=== PATIENT | male | born 1945 | race Caucasian/White ===

== ENCOUNTER 2024-08-02 14:21 | Inpatient (IN) | payer MEDICARE, OTHER ==
[~2024-08-02] VITALS: Ht 188 cm; Wt 77.7 kg
[~2024-08-02 14:21] MED LIST: JANUMET 50-1,01 EACH PO
[2024-08-02 14:22] VITALS: TEMP 98.2
[2024-08-02] MEDS: DILTIAZEM HCL 5 MG/ML 5 ML VIAL IV STA ×2 (14:34→15:55)
[2024-08-02] MEDS: DIGOXIN INJ 0.25 MG/ML 2 ML AMP IV STA (14:36)
[2024-08-02] MEDS: METOPROLOL TARTRATE INJ 1 MG/ML VIAL IV STA (14:38)
[2024-08-02 14:39] LABS: BASOPHILS % 0.2 % (0.0-1.0); HEMATOCRIT 32.7 % (38.2-49.6); HEMOGLOBIN 10.5 g/dL (14.0-18.0); LYMPHOCYTES % 4.6 % (18.0-39.1); MEAN CORPUSCULAR HEMOGLOBIN 28.7 pg (28-32); MEAN CORPUSCULAR HGB CONC 32.1 g/dL (31-35); MEAN CORPUSCULAR VOLUME 89.3 fL (81-99); MONOCYTES # (AUTO) 1.3 (0.2-0.8); NEUTROPHILS # (AUTO) 18.8 (2.1-6.9); NEUTROPHILS % 88.5 % (38.7-80.0); PLATELET COUNT 422 x10e3/uL (140-360); RED BLOOD COUNT 3.66 x10e6/uL (4.3-5.7); RED CELL DISTRIBUTION WIDTH 14.7 % (11.7-14.4); WHITE BLOOD COUNT 21.26 x10e3/uL (4.8-10.8)
[2024-08-02] MEDS ORDERED: DIGOXIN INJ 0.25 MG/ML 2 ML AMP ONE (14:46)
[2024-08-02 14:57] LABS: ALBUMIN/GLOBULIN RATIO 0.8 (0.8-2.0); ANION GAP 17.2 mmol/L (8-16); BILIRUBIN,TOTAL 0.5 mg/dL (0.2-1.2); CALCIUM 8.9 mg/dL (8.4-10.2); CREATININE, SERUM 1.3 mg/dL (0.72-1.25); POTASSIUM 4.2 mmol/L (3.5-5.1); TOTAL PROTEIN 6.7 g/dL (6.5-8.1)
[2024-08-02 15:05] LABS: TROPONIN I 0.005 ng/mL (0-0.300)
[2024-08-02] MEDS: SODIUM CHLORIDE 0.9% 1000ML 1,000 ML IV STA (16:07)
[2024-08-02] MEDS: ACETAMINOPHEN 325 MG TAB PO STA (16:09)
[2024-08-02 16:44] LABS: BILIRUBIN,URINE NEGATIVE (NEGATIVE); CLARITY,URINE SL CLOUDY (CLEAR); COLOR,URINE YELLOW (YELLOW); GLUCOSE, URINE NEGATIVE (NEGATIVE); KETONES,URINE 1+ (NEGATIVE); LEUKOCYTE ESTERASE ,URINE SMALL (NEGATIVE); NITRITE,URINE POSITIVE (NEGATIVE); PH,URINE 6 (5 - 7); PROTEIN,URINE DIPSTICK 1+ (NEGATIVE); URINE UROBILINOGEN 0.2 mg/dL (0.2 - 1)
[2024-08-02 17:04] LABS: BACTERIA,URINE MODERATE /HPF; RBC,URINE 0-5 /HPF (0-5)
[2024-08-02] MEDS ORDERED: ONDANSETRON HCL INJ 2MG/ML 2ML 2 MG/ML VIAL IV PRN (17:15)
[2024-08-02] MEDS ORDERED: SODIUM CHLORIDE FLUSH 10 ML SYR INJ PRN (17:15)
[2024-08-02 19:00] VITALS: PULSE 86; RESP 18
[2024-08-02] MEDS ORDERED: LISINOPRIL10 MG PO (20:32)
[2024-08-02] MEDS ORDERED: TAMOXIFEN CITRA10 MG PO (20:34)
[2024-08-02] MEDS ORDERED: ZOLPIDEM TARTRAT5 MG PO (20:34)
[2024-08-02] MEDS ORDERED: ATORVASTATIN CA10 MG PO (20:34)
[2024-08-02 21:03] VITALS: BP 129/82; PULSE 74; RESP 18; TEMP 98.6; O2SAT 98
[2024-08-02 22:17] VITALS: BP 129/82; PULSE 74; RESP 18; TEMP 98.6; O2SAT 98
[2024-08-02 22:51] VITALS: BP 129/82; PULSE 74; RESP 18; TEMP 98.6; O2SAT 98
[2024-08-03 00:50] VITALS: BP 139/73; PULSE 90; RESP 18; TEMP 98.9; O2SAT 98
[2024-08-03 04:00] VITALS: BP 132/78; PULSE 92; RESP 20; TEMP 97.8; O2SAT 100
[2024-08-03 06:15] LABS: BASOPHILS % 0.3 % (0.0-1.0); EOSINOPHILS % 0.2 % (0.0-6.0); HEMATOCRIT 30.7 % (38.2-49.6); HEMOGLOBIN 9.7 g/dL (14.0-18.0); LYMPHOCYTES # (AUTO) 0.9 (1.0-3.2); LYMPHOCYTES % 5.9 % (18.0-39.1); MEAN CORPUSCULAR HEMOGLOBIN 28.2 pg (28-32); MEAN CORPUSCULAR HGB CONC 31.6 g/dL (31-35); MEAN CORPUSCULAR VOLUME 89.2 fL (81-99); MONOCYTES % 6.6 % (4.4-11.3); NEUTROPHILS % 86.3 % (38.7-80.0); PLATELET COUNT 336 x10e3/uL (140-360); RED BLOOD COUNT 3.44 x10e6/uL (4.3-5.7); RED CELL DISTRIBUTION WIDTH 14.7 % (11.7-14.4); WHITE BLOOD COUNT 15.01 x10e3/uL (4.8-10.8)
[2024-08-03 06:42] LABS: ALBUMIN 2.6 g/dL (3.5-5.0); ALBUMIN/GLOBULIN RATIO 0.8 (0.8-2.0); ANION GAP 15.7 mmol/L (8-16); BILIRUBIN,TOTAL 0.5 mg/dL (0.2-1.2); CALCIUM 8.4 mg/dL (8.4-10.2); CREATININE, SERUM 0.86 mg/dL (0.72-1.25); POTASSIUM 3.7 mmol/L (3.5-5.1); TOTAL PROTEIN 5.9 g/dL (6.5-8.1)
[2024-08-03 07:06] LABS: TROPONIN I 0.017 ng/mL (0-0.300)
[2024-08-03 08:40] VITALS: BP 141/87; PULSE 94; RESP 18; TEMP 98.8; O2SAT 98
[2024-08-03 09:33] VITALS: BP 141/87; PULSE 94; RESP 18; TEMP 98.8; O2SAT 98
[2024-08-03] MEDS: MAGNESIUM SULFATE 2GM/50ML 50 ML IV ONE (09:36)
[2024-08-03] MEDS: TAMOXIFEN CITRATE 10 MG TAB PO SCH (09:38)
[2024-08-03 14:40] VITALS: BP 135/69; PULSE 53; RESP 18; TEMP 98.4; O2SAT 97
[2024-08-03 16:43] LABS: TROPONIN I 0.01 ng/mL (0-0.300)
[2024-08-03] MEDS: ENOXAPARIN INJ 80 MG/0.8 ML SYR SC ONE (17:33)
[2024-08-03] MEDS: METOPROLOL TARTRATE 25 MG TAB PO SCH (17:33)
[2024-08-03 18:43] VITALS: BP 144/95; PULSE 101; RESP 18; TEMP 98.2; O2SAT 98
[2024-08-03] MEDS: ZOLPIDEM TARTRATE 5 MG TAB PO PRN (21:10)
[2024-08-03] MEDS: Morphine 2mg Syringe 2 MG/ML SYR IV PRN (21:11)
[2024-08-03] MEDS: ATORVASTATIN 10 MG TAB PO SCH (21:24)
[2024-08-04] VITALS (8 sets, daily range): BP systolic 128–145; BP diastolic 69–91; PULSE 61–100; RESP 16–20; TEMP 97.3–98.2; O2SAT 95–100
[2024-08-04] MEDS: ENOXAPARIN INJ 80 MG/0.8 ML SYR SC SCH (06:07)
[2024-08-04 07:01] LABS: BASOPHILS % 0.3 % (0.0-1.0); EOSINOPHILS # (AUTO) 0.1 (0.0-0.4); HEMATOCRIT 29.6 % (38.2-49.6); HEMOGLOBIN 9.4 g/dL (14.0-18.0); LYMPHOCYTES # (AUTO) 0.9 (1.0-3.2); MEAN CORPUSCULAR HEMOGLOBIN 28.3 pg (28-32); MEAN CORPUSCULAR HGB CONC 31.8 g/dL (31-35); MEAN CORPUSCULAR VOLUME 89.2 fL (81-99); MONOCYTES # (AUTO) 0.6 (0.2-0.8); MONOCYTES % 5.8 % (4.4-11.3); NEUTROPHILS # (AUTO) 8.5 (2.1-6.9); NEUTROPHILS % 82.8 % (38.7-80.0); PLATELET COUNT 332 x10e3/uL (140-360); RED BLOOD COUNT 3.32 x10e6/uL (4.3-5.7); RED CELL DISTRIBUTION WIDTH 14.6 % (11.7-14.4); WHITE BLOOD COUNT 10.27 x10e3/uL (4.8-10.8)
[2024-08-04 07:29] LABS: ALBUMIN 2.5 g/dL (3.5-5.0); ALBUMIN/GLOBULIN RATIO 0.8 (0.8-2.0); ANION GAP 14.6 mmol/L (8-16); BILIRUBIN,TOTAL 0.4 mg/dL (0.2-1.2); CALCIUM 8.4 mg/dL (8.4-10.2); CREATININE, SERUM 0.8 mg/dL (0.72-1.25); MAGNESIUM 1.5 MG/DL (1.3-2.1); POTASSIUM 3.6 mmol/L (3.5-5.1); TOTAL PROTEIN 5.7 g/dL (6.5-8.1)
[2024-08-04] MEDS: METOPROLOL TARTRATE 25 MG TAB PO SCH (17:36)
[2024-08-05] VITALS (12 sets, daily range): BP systolic 112–159; BP diastolic 65–88; PULSE 77–99; RESP 16–19; TEMP 97.3–98.3; O2SAT 93–100
[2024-08-05] MEDS: MAGNESIUM SULFATE 2GM/50ML 50 ML IV ONE (05:01)
[2024-08-05 06:27] LABS: BASOPHILS % 0.4 % (0.0-1.0); EOSINOPHILS # (AUTO) 0.2 (0.0-0.4); EOSINOPHILS % 2.2 % (0.0-6.0); HEMATOCRIT 29.8 % (38.2-49.6); HEMOGLOBIN 9.4 g/dL (14.0-18.0); LYMPHOCYTES # (AUTO) 1.1 (1.0-3.2); LYMPHOCYTES % 13.5 % (18.0-39.1); MEAN CORPUSCULAR HEMOGLOBIN 28.1 pg (28-32); MEAN CORPUSCULAR HGB CONC 31.5 g/dL (31-35); MONOCYTES # (AUTO) 0.6 (0.2-0.8); MONOCYTES % 7.4 % (4.4-11.3); NEUTROPHILS # (AUTO) 6.2 (2.1-6.9); NEUTROPHILS % 75.5 % (38.7-80.0); PLATELET COUNT 335 x10e3/uL (140-360); RED BLOOD COUNT 3.35 x10e6/uL (4.3-5.7); RED CELL DISTRIBUTION WIDTH 14.5 % (11.7-14.4); WHITE BLOOD COUNT 8.14 x10e3/uL (4.8-10.8)
[2024-08-05 07:08] LABS: ALBUMIN 2.4 g/dL (3.5-5.0); ALBUMIN/GLOBULIN RATIO 0.7 (0.8-2.0); ANION GAP 13.7 mmol/L (8-16); BILIRUBIN,TOTAL 0.4 mg/dL (0.2-1.2); CALCIUM 8.6 mg/dL (8.4-10.2); CREATININE, SERUM 0.8 mg/dL (0.72-1.25); POTASSIUM 3.7 mmol/L (3.5-5.1); TOTAL PROTEIN 5.9 g/dL (6.5-8.1)
[2024-08-05] MEDS: DIGOXIN 0.25 MG TAB PO ONE (16:56)
[2024-08-05] MEDS: METOPROLOL TARTRATE 50 MG TAB PO SCH (18:22)
[2024-08-06 03:31] VITALS: BP 115/80; PULSE 72; RESP 18; TEMP 98.4; O2SAT 99
[2024-08-06 07:24] LABS: BASOPHILS % 0.3 % (0.0-1.0); EOSINOPHILS # (AUTO) 0.2 (0.0-0.4); EOSINOPHILS % 2.7 % (0.0-6.0); HEMATOCRIT 30.2 % (38.2-49.6); HEMOGLOBIN 10.1 g/dL (14.0-18.0); LYMPHOCYTES # (AUTO) 0.8 (1.0-3.2); LYMPHOCYTES % 10.9 % (18.0-39.1); MEAN CORPUSCULAR HEMOGLOBIN 28.4 pg (28-32); MEAN CORPUSCULAR HGB CONC 33.4 g/dL (31-35); MEAN CORPUSCULAR VOLUME 84.8 fL (81-99); MONOCYTES # (AUTO) 0.5 (0.2-0.8); MONOCYTES % 7.2 % (4.4-11.3); NEUTROPHILS # (AUTO) 5.8 (2.1-6.9); NEUTROPHILS % 77.8 % (38.7-80.0); PLATELET COUNT 373 x10e3/uL (140-360); RED BLOOD COUNT 3.56 x10e6/uL (4.3-5.7); RED CELL DISTRIBUTION WIDTH 14.3 % (11.7-14.4)
[2024-08-06 07:41] LABS: ALBUMIN 2.6 g/dL (3.5-5.0); ALBUMIN/GLOBULIN RATIO 0.7 (0.8-2.0); ANION GAP 11.1 mmol/L (8-16); BILIRUBIN,TOTAL 0.3 mg/dL (0.2-1.2); CALCIUM 8.9 mg/dL (8.4-10.2); CREATININE, SERUM 0.82 mg/dL (0.72-1.25); MAGNESIUM 1.5 MG/DL (1.3-2.1); POTASSIUM 4.1 mmol/L (3.5-5.1); TOTAL PROTEIN 6.1 g/dL (6.5-8.1)
[2024-08-06 08:31] VITALS: BP 159/82; PULSE 87; RESP 17; TEMP 98.2; O2SAT 99
[2024-08-06 09:55] VITALS: BP 159/82; PULSE 87; RESP 17; TEMP 98.2; O2SAT 99
[2024-08-06 13:07] VITALS: BP 125/67; PULSE 97; RESP 17; TEMP 98.6; O2SAT 98
[2024-08-06 16:00] VITALS: BP 140/81; PULSE 69; RESP 20; TEMP 98; O2SAT 94
[2024-08-06 21:00] VITALS: BP 155/85; PULSE 87; RESP 20; TEMP 97.6; O2SAT 100
[2024-08-07] VITALS (9 sets, daily range): BP systolic 117–153; BP diastolic 74–104; PULSE 65–101; RESP 16–20; TEMP 97.5–98.5; O2SAT 82–100
[2024-08-08] VITALS (9 sets, daily range): BP systolic 120–136; BP diastolic 60–81; PULSE 79–103; RESP 18; TEMP 97.6–98.4; O2SAT 97–100
[2024-08-08 06:35] LABS: ANION GAP 13.9 mmol/L (8-16); CALCIUM 8.7 mg/dL (8.4-10.2); CREATININE, SERUM 0.72 mg/dL (0.72-1.25); POTASSIUM 3.9 mmol/L (3.5-5.1)
[2024-08-08] MEDS: CIPROFLOXACIN 500 MG TAB PO SCH (17:55)
[2024-08-08] MEDS: ATORVASTATIN 10 MG TAB PO SCH (20:27)
[2024-08-09] VITALS (9 sets, daily range): BP systolic 105–152; BP diastolic 56–86; PULSE 76–93; RESP 16–18; TEMP 97.6–98.1; O2SAT 96–100
[2024-08-09 06:27] LABS: BASOPHILS % 0.4 % (0.0-1.0); EOSINOPHILS # (AUTO) 0.3 (0.0-0.4); HEMATOCRIT 30.2 % (38.2-49.6); HEMOGLOBIN 10.1 g/dL (14.0-18.0); LYMPHOCYTES # (AUTO) 1.2 (1.0-3.2); LYMPHOCYTES % 14.6 % (18.0-39.1); MEAN CORPUSCULAR HEMOGLOBIN 28.7 pg (28-32); MEAN CORPUSCULAR HGB CONC 33.4 g/dL (31-35); MEAN CORPUSCULAR VOLUME 85.8 fL (81-99); MONOCYTES # (AUTO) 0.7 (0.2-0.8); MONOCYTES % 8.7 % (4.4-11.3); NEUTROPHILS # (AUTO) 5.6 (2.1-6.9); NEUTROPHILS % 70.3 % (38.7-80.0); PLATELET COUNT 392 x10e3/uL (140-360); RED BLOOD COUNT 3.52 x10e6/uL (4.3-5.7); RED CELL DISTRIBUTION WIDTH 14.5 % (11.7-14.4); WHITE BLOOD COUNT 7.92 x10e3/uL (4.8-10.8)
[2024-08-09 06:58] LABS: CALCIUM 9.2 mg/dL (8.4-10.2); CREATININE, SERUM 0.84 mg/dL (0.72-1.25)
[2024-08-09] MEDS: ACETAMINOPHEN 325 MG TAB PO PRN (23:20)
[2024-08-10] VITALS (7 sets, daily range): BP systolic 99–147; BP diastolic 48–81; PULSE 79–93; RESP 16–20; TEMP 98–99.6; O2SAT 99–100
[2024-08-10] MEDS: DIGOXIN 0.125 MG TAB PO SCH (09:09)
[2024-08-10] MEDS: ZOLPIDEM TARTRATE 5 MG TAB PO PRN (22:21)
[2024-08-11] VITALS (8 sets, daily range): BP systolic 103–148; BP diastolic 50–92; PULSE 62–118; RESP 17–20; TEMP 97.3–98.1; O2SAT 94–100
[2024-08-11] MEDS: DIGOXIN 0.25 MG TAB PO SCH (09:30)
[2024-08-11] MEDS: BISACODYL 5 MG TAB EC PO PRN (17:04)
[2024-08-12] VITALS (8 sets, daily range): BP systolic 112–163; BP diastolic 70–96; PULSE 55–104; RESP 16–20; TEMP 97–98.1; O2SAT 99–100
[2024-08-12 06:46] LABS: BASOPHILS % 0.6 % (0.0-1.0); EOSINOPHILS # (AUTO) 0.3 (0.0-0.4); EOSINOPHILS % 4.3 % (0.0-6.0); HEMATOCRIT 32.7 % (38.2-49.6); HEMOGLOBIN 10.4 g/dL (14.0-18.0); LYMPHOCYTES % 13.7 % (18.0-39.1); MEAN CORPUSCULAR HEMOGLOBIN 28.3 pg (28-32); MEAN CORPUSCULAR HGB CONC 31.8 g/dL (31-35); MEAN CORPUSCULAR VOLUME 89.1 fL (81-99); MONOCYTES # (AUTO) 0.7 (0.2-0.8); MONOCYTES % 9.7 % (4.4-11.3); NEUTROPHILS # (AUTO) 5.1 (2.1-6.9); NEUTROPHILS % 70.3 % (38.7-80.0); PLATELET COUNT 425 x10e3/uL (140-360); RED BLOOD COUNT 3.67 x10e6/uL (4.3-5.7); RED CELL DISTRIBUTION WIDTH 14.7 % (11.7-14.4); WHITE BLOOD COUNT 7.24 x10e3/uL (4.8-10.8)
[2024-08-12 07:17] LABS: ALBUMIN/GLOBULIN RATIO 0.9 (0.8-2.0); BILIRUBIN,TOTAL 0.3 mg/dL (0.2-1.2); CALCIUM 9.2 mg/dL (8.4-10.2); CREATININE, SERUM 0.9 mg/dL (0.72-1.25); MAGNESIUM 1.9 MG/DL (1.3-2.1); TOTAL PROTEIN 6.5 g/dL (6.5-8.1)
[2024-08-13] VITALS (8 sets, daily range): BP systolic 119–148; BP diastolic 65–90; PULSE 62–94; RESP 18–22; TEMP 97.6–98.3; O2SAT 99–100
[2024-08-14] VITALS (9 sets, daily range): BP systolic 102–150; BP diastolic 54–90; PULSE 69–90; RESP 18–20; TEMP 97.6–98.1; O2SAT 98–100
[2024-08-15] VITALS (7 sets, daily range): BP systolic 104–143; BP diastolic 55–85; PULSE 67–89; RESP 16–21; TEMP 97.5–98.3; O2SAT 96–100
[2024-08-16] VITALS (8 sets, daily range): BP systolic 109–123; BP diastolic 63–88; PULSE 69–83; RESP 16–19; TEMP 97.3–98.1; O2SAT 99–100
[2024-08-16 07:18] LABS: BASOPHILS # (AUTO) 0.1 (0.0-0.1); BASOPHILS % 0.6 % (0.0-1.0); EOSINOPHILS # (AUTO) 0.4 (0.0-0.4); EOSINOPHILS % 4.5 % (0.0-6.0); HEMATOCRIT 33.3 % (38.2-49.6); HEMOGLOBIN 10.5 g/dL (14.0-18.0); LYMPHOCYTES # (AUTO) 1.2 (1.0-3.2); LYMPHOCYTES % 13.6 % (18.0-39.1); MEAN CORPUSCULAR HEMOGLOBIN 28.4 pg (28-32); MEAN CORPUSCULAR HGB CONC 31.5 g/dL (31-35); MONOCYTES # (AUTO) 0.8 (0.2-0.8); MONOCYTES % 9.3 % (4.4-11.3); NEUTROPHILS # (AUTO) 6.2 (2.1-6.9); NEUTROPHILS % 71.3 % (38.7-80.0); PLATELET COUNT 377 x10e3/uL (140-360); RED CELL DISTRIBUTION WIDTH 15.3 % (11.7-14.4); WHITE BLOOD COUNT 8.72 x10e3/uL (4.8-10.8)
[2024-08-16 08:06] LABS: ALBUMIN 3.2 g/dL (3.5-5.0); ANION GAP 13.4 mmol/L (8-16); BILIRUBIN,TOTAL 0.5 mg/dL (0.2-1.2); CALCIUM 8.9 mg/dL (8.4-10.2); CREATININE, SERUM 0.89 mg/dL (0.72-1.25); MAGNESIUM 1.8 MG/DL (1.3-2.1); POTASSIUM 4.4 mmol/L (3.5-5.1); TOTAL PROTEIN 6.3 g/dL (6.5-8.1)
[2024-08-17] VITALS (8 sets, daily range): BP systolic 108–136; BP diastolic 59–80; PULSE 59–87; RESP 17–19; TEMP 97.5–97.9; O2SAT 98–100
[2024-08-18 00:06] VITALS: BP 135/67; PULSE 81; RESP 17; TEMP 98; O2SAT 100
[2024-08-18 04:12] VITALS: BP 110/61; PULSE 90; RESP 18; TEMP 97.4; O2SAT 100
[2024-08-18 08:00] VITALS: BP 95/59; PULSE 79; RESP 17; TEMP 97.5; O2SAT 100
[2024-08-18 09:00] VITALS: BP 95/59; PULSE 79; RESP 17; TEMP 97.5; O2SAT 100
[2024-08-18 12:08] VITALS: BP 104/53; PULSE 73; RESP 18; TEMP 97.6; O2SAT 99
[2024-08-18 12:19] VITALS: BP 104/53; PULSE 73
== END 2024-08-18 14:50 | DRG 871 ==
LOC: ER 14:28 → ERHOLD 17:16 → MED/SURG3 20:26
PROVIDERS: ADMIT Internal Medicine; ATTEND Internal Medicine
PROC: 3E0333Z Introduction of Anti-inflammatory into Peripheral Vein, Percutaneous Approach (ICD-10-PCS; principal; 2024-08-02)
DX: A41.52 Sepsis due to Pseudomonas (principal); E43 Unspecified severe protein-calorie malnutrition; U07.1 COVID-19; N39.0 Urinary tract infection, site not specified; N12 Tubulo-interstitial nephritis, not specified as acute or chronic; R62.7 Adult failure to thrive; I48.91 Unspecified atrial fibrillation; E11.22 Type 2 diabetes mellitus with diabetic chronic kidney disease; I12.9 Hypertensive chronic kidney disease with stage 1 through stage 4 chronic kidney disease, or unspecified chronic kidney disease; N18.30 Chronic kidney disease, stage 3 unspecified; D63.1 Anemia in chronic kidney disease; R55 Syncope and collapse; E78.5 Hyperlipidemia, unspecified; R33.9 Retention of urine, unspecified; R63.4 Abnormal weight loss; Z68.22 Body mass index [BMI] 22.0-22.9, adult; M62.81 Muscle weakness (generalized); R53.81 Other malaise; Z79.84 Long term (current) use of oral hypoglycemic drugs; Z85.3 Personal history of malignant neoplasm of breast; Z82.49 Family history of ischemic heart disease and other diseases of the circulatory system
CPT/HCPCS: 36415; 51700; 71045; 80048; 80053; 81001; 82550; 83605; 83690; 83735; 83880; 84484; 85025; 87040; 87086; 87186; 87400; 93005; 93306; 93880; 99284; J0692; J1160; J1650; J2270; J2543; J3475; J7030; U0002

== ENCOUNTER 2024-09-25 10:28 | Emergency (ER) | payer MEDICARE ==
[~2024-09-25] VITALS: Ht 188 cm; Wt 77.6 kg
[~2024-09-25 10:28] MED LIST changes: +AMIODARONE HCL200 MG PO; +ATORVASTATIN CA10 MG PO; +ELIQUIS2.5 MG PO; +LISINOPRIL10 MG PO; +METOPROLOL TART25 MG PO; +TAMOXIFEN CITRA10 MG PO; +ZOLPIDEM TARTRAT5 MG PO
[2024-09-25 11:15] VITALS: PULSE 78; RESP 17; TEMP 98.6
[2024-09-25] MEDS ORDERED: NYSTATIN15 GM TOP (13:15)
[2024-09-25] MEDS ORDERED: CEPHALEXIN500 MG PO (13:15)
[2024-09-25 13:46] VITALS: BP 152/98; PULSE 68; RESP 17; TEMP 98.2; O2SAT 98
== END 2024-09-25 13:50 | disposition home or self-care (01) ==
LOC: ER 10:36
DX: N48.1 Balanitis (principal); I10 Essential (primary) hypertension; I48.91 Unspecified atrial fibrillation; Z79.01 Long term (current) use of anticoagulants
CPT/HCPCS: 76870; 93971; 93976; 99284

== ENCOUNTER 2024-10-18 14:54 | Outpatient (RCR) | payer MEDICARE ==
[~2024-10-18 14:54] MED LIST changes: +CEPHALEXIN500 MG PO; +NYSTATIN15 GM TOP
[2024-10-23] MEDS ORDERED: [UNRECOGNIZED DRUG - OTHER] PO (12:12)
[2024-10-23] MEDS ORDERED: TAMOXIFEN CITRA20 MG PO (12:18)
[2024-10-23] MEDS ORDERED: ATORVASTATIN CA40 MG PO (12:19)
[2024-10-23] MEDS ORDERED: LISINOPRIL2.5 MG PO (12:24)
[2024-10-23] MEDS ORDERED: ELIQUIS5 MG PO (12:27)
[2024-10-23] MEDS ORDERED: FLOMAX0.4 MG PO (12:36)
== END 2024-10-22 ==
LOC: PT 14:54
PROVIDERS: ATTEND Internal Medicine
DX: M62.81 Muscle weakness (generalized) (principal)

== ENCOUNTER 2024-10-22 10:10 | Inpatient (IN) | payer MEDICARE ==
[~2024-10-22] VITALS: Ht 188 cm; Wt 77.6 kg
[2024-10-22] VITALS (8 sets, daily range): BP systolic 135–151; BP diastolic 73–81; PULSE 70–79; RESP 14–18; TEMP 97.5–97.9; O2SAT 93–100
[2024-10-22 11:11] LABS: BASOPHILS % 0.1 % (0.0-1.0); EOSINOPHILS % 0.3 % (0.0-6.0); HEMATOCRIT 33.8 % (38.2-49.6); HEMOGLOBIN 11.5 g/dL (14.0-18.0); LYMPHOCYTES # (AUTO) 0.9 (1.0-3.2); MEAN CORPUSCULAR HEMOGLOBIN 26.3 pg (28-32); MEAN CORPUSCULAR VOLUME 77.2 fL (81-99); MONOCYTES # (AUTO) 0.7 (0.2-0.8); MONOCYTES % 6.3 % (4.4-11.3); NEUTROPHILS # (AUTO) 9.8 (2.1-6.9); NEUTROPHILS % 84.8 % (38.7-80.0); PLATELET COUNT 373 x10e3/uL (140-360); RED BLOOD COUNT 4.38 x10e6/uL (4.3-5.7); WHITE BLOOD COUNT 11.59 x10e3/uL (4.8-10.8)
[2024-10-22 11:27] LABS: INR 1.25; PROTHROMBIN TIME 16.4 seconds (11.9-14.5)
[2024-10-22 11:35] LABS: ALBUMIN 3.8 g/dL (3.5-5.0); ALBUMIN/GLOBULIN RATIO 1.2 (0.8-2.0); CALCIUM 9.2 mg/dL (8.4-10.2); CREATININE, SERUM 1.04 mg/dL (0.72-1.25); MAGNESIUM 1.3 MG/DL (1.3-2.1); TOTAL PROTEIN 7.1 g/dL (6.5-8.1)
[2024-10-22 11:41] LABS: TROPONIN I 0.007 ng/mL (0-0.300)
[2024-10-22 12:17] LABS: BLOOD UREA NITROGEN 16 mg/dL (7-26); GLUCOSE 110 mg/dL (74-118); OSMOLALITY,SERUM 242 mOsm/kg (278-305)
[2024-10-22 12:18] LABS: SODIUM 119 mmol/L (136-145)
[2024-10-22] MEDS: MECLIZINE HCL 12.5 MG TAB PO ONE (12:26)
[2024-10-22] MEDS: ONDANSETRON HCL INJ 2MG/ML 2ML 2 MG/ML VIAL IV STA (12:26)
[2024-10-22] MEDS: SODIUM CHLORIDE 0.9% 1000ML 1,000 ML IV STA (12:27)
[2024-10-22] MEDS ORDERED: MECLIZINE HCL 12.5 MG TAB PO PRN (12:30)
[2024-10-22] MEDS ORDERED: ONDANSETRON HCL INJ 2MG/ML 2ML 2 MG/ML VIAL IV PRN (12:30)
[2024-10-22 12:47] LABS: CLARITY,URINE CLEAR (CLEAR); COLOR,URINE YELLOW (YELLOW); PH,URINE 8 (5 - 7)
[2024-10-22 12:48] LABS: BILIRUBIN,URINE NEGATIVE (NEGATIVE); GLUCOSE, URINE NEGATIVE (NEGATIVE); KETONES,URINE TRACE (NEGATIVE); LEUKOCYTE ESTERASE ,URINE SMALL (NEGATIVE); NITRITE,URINE NEGATIVE (NEGATIVE); PROTEIN,URINE DIPSTICK 1+ (NEGATIVE); URINE UROBILINOGEN 0.2 mg/dL (0.2 - 1)
[2024-10-22 12:57] LABS: INFLUENZA A AG NEGATIVE (NEGATIVE)
[2024-10-22 12:58] LABS: CORONAVIRUS COVID-19 AG NEGATIVE (NEGATIVE); INFLUENZA B AG NEGATIVE (NEGATIVE)
[2024-10-22 13:10] LABS: BACTERIA,URINE MANY /HPF; WBC,URINE (MAN) >50 /HPF (0-5)
[2024-10-22 13:11] LABS: EPITHELIAL CELLS,URINE FEW /LPF
[2024-10-22] MEDS: SODIUM CHLORIDE 0.9% 1000ML 1,000 ML IV SCH (15:28)
[2024-10-22] MEDS: MAGNESIUM SULFATE 2GM/50ML 50 ML IV ONE (15:29)
[2024-10-22] MEDS: SODIUM CHLORIDE 1 GM TAB PO SCH (15:29)
[2024-10-23 03:10] VITALS: BP 150/79; PULSE 59; RESP 18; TEMP 97.9; O2SAT 99
[2024-10-23 08:54] VITALS: BP 138/83; PULSE 55; RESP 18; TEMP 98.4; O2SAT 98
[2024-10-23 09:00] VITALS: BP 138/83; PULSE 55; RESP 18; TEMP 98.4; O2SAT 98
[2024-10-23] MEDS ORDERED: TAMOXIFEN CITRATE 10 MG TAB PO SCH (09:00)
[2024-10-23] MEDS ORDERED: NON-FORMULARY MEDICATION (Sitagliptin Phos/Metformin Hcl (Janumet 50-1,000 Mg Tablet) 1 TA PO SCH (09:00)
[2024-10-23 09:06] LABS: BASOPHILS % 0.3 % (0.0-1.0); EOSINOPHILS # (AUTO) 0.1 (0.0-0.4); EOSINOPHILS % 0.8 % (0.0-6.0); HEMATOCRIT 31.2 % (38.2-49.6); HEMOGLOBIN 10.3 g/dL (14.0-18.0); LYMPHOCYTES # (AUTO) 1.2 (1.0-3.2); MEAN CORPUSCULAR HEMOGLOBIN 26.3 pg (28-32); MEAN CORPUSCULAR VOLUME 79.6 fL (81-99); MONOCYTES # (AUTO) 0.8 (0.2-0.8); MONOCYTES % 10.1 % (4.4-11.3); NEUTROPHILS # (AUTO) 5.7 (2.1-6.9); NEUTROPHILS % 73.2 % (38.7-80.0); PLATELET COUNT 304 x10e3/uL (140-360); RED BLOOD COUNT 3.92 x10e6/uL (4.3-5.7); RED CELL DISTRIBUTION WIDTH 15.2 % (11.7-14.4); WHITE BLOOD COUNT 7.74 x10e3/uL (4.8-10.8)
[2024-10-23 09:53] LABS: ALBUMIN 2.9 g/dL (3.5-5.0); ALBUMIN/GLOBULIN RATIO 1.2 (0.8-2.0); ANION GAP 14.9 mmol/L (8-16); BILIRUBIN,TOTAL 0.6 mg/dL (0.2-1.2); CALCIUM 7.8 mg/dL (8.4-10.2); CREATININE, SERUM 0.85 mg/dL (0.72-1.25); POTASSIUM 3.9 mmol/L (3.5-5.1); TOTAL PROTEIN 5.3 g/dL (6.5-8.1)
[2024-10-23 10:01] LABS: TROPONIN I 0.007 ng/mL (0-0.300)
[2024-10-23] MEDS: AMIODARONE HCL 200 MG TAB PO SCH (10:44)
[2024-10-23] MEDS: METOPROLOL TARTRATE 25 MG TAB PO SCH (10:44)
[2024-10-23] MEDS: APIXABAN 2.5 MG TABLET PO SCH (10:44)
[2024-10-23] MEDS: LISINOPRIL 10 MG TAB PO SCH (10:45)
[2024-10-23] MEDS: NYSTATIN 100,000 UNITS/GM CRM 30GM TUBE TOP SCH (10:51)
[2024-10-23 12:03] VITALS: BP 142/89; PULSE 78; RESP 18; TEMP 97.6; O2SAT 100
[2024-10-23] MEDS ORDERED: [UNRECOGNIZED DRUG - OTHER] PO (12:12)
[2024-10-23] MEDS ORDERED: TAMOXIFEN CITRA20 MG PO (12:18)
[2024-10-23] MEDS ORDERED: ATORVASTATIN CA40 MG PO (12:19)
[2024-10-23] MEDS ORDERED: LISINOPRIL2.5 MG PO (12:24)
[2024-10-23] MEDS ORDERED: ELIQUIS5 MG PO (12:27)
[2024-10-23] MEDS ORDERED: FLOMAX0.4 MG PO (12:36)
[2024-10-23 16:07] VITALS: BP 113/62; PULSE 68; RESP 20; TEMP 98.6; O2SAT 96
[2024-10-23] MEDS: TAMOXIFEN CITRATE 10 MG TAB PO SCH (16:54)
[2024-10-23] MEDS: TAMSULOSIN HCL 0.4 MG CAP PO SCH (16:54)
[2024-10-23] MEDS: APIXABAN 5 MG TABLET PO SCH (16:58)
[2024-10-23 20:00] VITALS: BP_SYST 105; BP_SYST 128; BP_DIAS 60; BP_DIAS 79; PULSE 70; RESP 18; RESP 19; TEMP 99; O2SAT 98
[2024-10-23] MEDS: ZOLPIDEM TARTRATE 5 MG TAB PO SCH (20:44)
[2024-10-23] MEDS: ATORVASTATIN 40 MG TAB PO SCH (20:44)
[2024-10-23] MEDS ORDERED: ATORVASTATIN 10 MG TAB PO SCH (21:00)
[2024-10-24] VITALS (8 sets, daily range): BP systolic 102–146; BP diastolic 59–83; PULSE 60–77; RESP 18–19; TEMP 97.9–98.2; O2SAT 95–99
[2024-10-24 07:25] LABS: ANION GAP 12.9 mmol/L (8-16); CALCIUM 7.9 mg/dL (8.4-10.2); CREATININE, SERUM 0.88 mg/dL (0.72-1.25); POTASSIUM 3.9 mmol/L (3.5-5.1)
[2024-10-24 07:32] LABS: TROPONIN I 0.002 ng/mL (0-0.300)
[2024-10-24] MEDS: METFORMIN HCL 500 MG TAB PO SCH (09:56)
[2024-10-24] MEDS: SITAGLIPTIN 100 MG TAB PO SCH (09:57)
[2024-10-24 10:40] LABS: BASOPHILS % 0.4 % (0.0-1.0); EOSINOPHILS # (AUTO) 0.1 (0.0-0.4); EOSINOPHILS % 1.2 % (0.0-6.0); HEMATOCRIT 32.7 % (38.2-49.6); HEMOGLOBIN 10.6 g/dL (14.0-18.0); LYMPHOCYTES # (AUTO) 0.8 (1.0-3.2); LYMPHOCYTES % 8.7 % (18.0-39.1); MEAN CORPUSCULAR HEMOGLOBIN 26.3 pg (28-32); MEAN CORPUSCULAR HGB CONC 32.4 g/dL (31-35); MEAN CORPUSCULAR VOLUME 81.1 fL (81-99); MONOCYTES # (AUTO) 0.6 (0.2-0.8); MONOCYTES % 6.3 % (4.4-11.3); NEUTROPHILS # (AUTO) 7.7 (2.1-6.9); NEUTROPHILS % 82.9 % (38.7-80.0); PLATELET COUNT 319 x10e3/uL (140-360); RED BLOOD COUNT 4.03 x10e6/uL (4.3-5.7); RED CELL DISTRIBUTION WIDTH 15.5 % (11.7-14.4); WHITE BLOOD COUNT 9.28 x10e3/uL (4.8-10.8)
[2024-10-25] VITALS (10 sets, daily range): BP systolic 119–158; BP diastolic 59–88; PULSE 61–82; RESP 18–19; TEMP 97.8–98.4; O2SAT 95–100
[2024-10-25 06:05] LABS: BASOPHILS % 0.3 % (0.0-1.0); EOSINOPHILS # (AUTO) 0.3 (0.0-0.4); HEMATOCRIT 32.8 % (38.2-49.6); HEMOGLOBIN 10.8 g/dL (14.0-18.0); LYMPHOCYTES # (AUTO) 1.1 (1.0-3.2); LYMPHOCYTES % 12.4 % (18.0-39.1); MEAN CORPUSCULAR HEMOGLOBIN 26.6 pg (28-32); MEAN CORPUSCULAR HGB CONC 32.9 g/dL (31-35); MEAN CORPUSCULAR VOLUME 80.8 fL (81-99); MONOCYTES # (AUTO) 0.6 (0.2-0.8); MONOCYTES % 6.7 % (4.4-11.3); NEUTROPHILS # (AUTO) 6.9 (2.1-6.9); PLATELET COUNT 317 x10e3/uL (140-360); RED BLOOD COUNT 4.06 x10e6/uL (4.3-5.7); RED CELL DISTRIBUTION WIDTH 15.6 % (11.7-14.4); WHITE BLOOD COUNT 8.95 x10e3/uL (4.8-10.8)
[2024-10-25 06:39] LABS: ANION GAP 16.1 mmol/L (8-16); CALCIUM 8.7 mg/dL (8.4-10.2); CREATININE, SERUM 0.97 mg/dL (0.72-1.25); POTASSIUM 4.1 mmol/L (3.5-5.1)
[2024-10-25] MEDS: CEFUROXIME AXETIL 250 MG TAB PO SCH (08:18)
[2024-10-25] MEDS: IRON SUCROSE 100 MG in SODIUM CHLORIDE 0.9% 100 ML IV SCH (11:34)
[2024-10-25] MEDS: GABAPENTIN 400 MG CAP PO SCH (21:05)
[2024-10-26 03:13] VITALS: BP 128/75; PULSE 86; RESP 18; TEMP 97.7; O2SAT 97
[2024-10-26] MEDS: MAGNESIUM SULFATE 2GM/50ML 50 ML IV ONE (06:50)
[2024-10-26 07:19] LABS: BASOPHILS % 0.4 % (0.0-1.0); EOSINOPHILS # (AUTO) 0.2 (0.0-0.4); EOSINOPHILS % 3.1 % (0.0-6.0); HEMATOCRIT 31.6 % (38.2-49.6); HEMOGLOBIN 10.4 g/dL (14.0-18.0); LYMPHOCYTES # (AUTO) 1.1 (1.0-3.2); LYMPHOCYTES % 14.8 % (18.0-39.1); MEAN CORPUSCULAR HEMOGLOBIN 26.3 pg (28-32); MEAN CORPUSCULAR HGB CONC 32.9 g/dL (31-35); MEAN CORPUSCULAR VOLUME 79.8 fL (81-99); MONOCYTES # (AUTO) 0.6 (0.2-0.8); NEUTROPHILS # (AUTO) 5.2 (2.1-6.9); NEUTROPHILS % 72.9 % (38.7-80.0); PLATELET COUNT 332 x10e3/uL (140-360); RED BLOOD COUNT 3.96 x10e6/uL (4.3-5.7); RED CELL DISTRIBUTION WIDTH 15.6 % (11.7-14.4); WHITE BLOOD COUNT 7.15 x10e3/uL (4.8-10.8)
[2024-10-26 07:54] LABS: ALBUMIN 3.2 g/dL (3.5-5.0); ALBUMIN/GLOBULIN RATIO 1.3 (0.8-2.0); BILIRUBIN,TOTAL 0.6 mg/dL (0.2-1.2); CALCIUM 8.6 mg/dL (8.4-10.2); CREATININE, SERUM 0.86 mg/dL (0.72-1.25); TOTAL PROTEIN 5.6 g/dL (6.5-8.1)
[2024-10-26 08:12] VITALS: BP 137/92; PULSE 62; RESP 18; TEMP 97.9; O2SAT 100
[2024-10-26] MEDS: NITROFURANTOIN MACROCRYSTALS 100 MG CAP PO SCH (09:05)
[2024-10-26 12:59] VITALS: BP 120/67; PULSE 69; RESP 18; TEMP 98.3; O2SAT 96
[2024-10-26] MEDS: SODIUM CHLORIDE 1 GM TAB PO SCH (14:53)
[2024-10-26 17:21] VITALS: BP 109/64; PULSE 65; RESP 18; TEMP 98; O2SAT 94
[2024-10-26 19:35] VITALS: BP 140/62; PULSE 64; RESP 18; TEMP 98.3; O2SAT 98
[2024-10-26 21:34] VITALS: BP 140/62; PULSE 64; RESP 18; TEMP 98.3; O2SAT 98
[2024-10-27] VITALS: BP 141/64; PULSE 76; RESP 18; TEMP 98.4; O2SAT 100
[2024-10-27 04:00] VITALS: BP 117/70; PULSE 67; RESP 20; TEMP 98.2; O2SAT 97
[2024-10-27 08:00] VITALS: BP 118/67; PULSE 77; RESP 19; TEMP 97.8; O2SAT 100
[2024-10-27] MEDS: FUROSEMIDE 20 MG TAB PO SCH (09:05)
[2024-10-27 09:32] VITALS: BP 118/67; PULSE 77; RESP 19; TEMP 97.8; O2SAT 100
== END 2024-10-27 09:33 | disposition home or self-care (01) | DRG 644 ==
LOC: ER 10:16 → ERHOLD 12:33 → MED/SURG3 18:06
PROVIDERS: ADMIT Internal Medicine; ATTEND Internal Medicine
DX: E22.2 Syndrome of inappropriate secretion of antidiuretic hormone (principal); N39.0 Urinary tract infection, site not specified; B95.62 Methicillin resistant Staphylococcus aureus infection as the cause of diseases classified elsewhere; E86.0 Dehydration; R11.2 Nausea with vomiting, unspecified; R42 Dizziness and giddiness; R26.89 Other abnormalities of gait and mobility; I10 Essential (primary) hypertension; I25.10 Atherosclerotic heart disease of native coronary artery without angina pectoris; I48.91 Unspecified atrial fibrillation; Z79.01 Long term (current) use of anticoagulants; E78.5 Hyperlipidemia, unspecified; N40.0 Benign prostatic hyperplasia without lower urinary tract symptoms; D64.9 Anemia, unspecified; R53.1 Weakness; E11.9 Type 2 diabetes mellitus without complications; I25.2 Old myocardial infarction; I25.119 Atherosclerotic heart disease of native coronary artery with unspecified angina pectoris; K59.00 Constipation, unspecified; G25.81 Restless legs syndrome; K57.30 Diverticulosis of large intestine without perforation or abscess without bleeding; H91.90 Unspecified hearing loss, unspecified ear; Z11.52 Encounter for screening for COVID-19; Z85.3 Personal history of malignant neoplasm of breast; Z90.11 Acquired absence of right breast and nipple; Z92.21 Personal history of antineoplastic chemotherapy; Z92.3 Personal history of irradiation; Z79.810 Long term (current) use of selective estrogen receptor modulators (SERMs); Z79.899 Other long term (current) drug therapy
CPT/HCPCS: 36415; 70450; 71045; 74176; 80048; 80053; 80162; 81001; 82550; 82947; 82948; 83735; 83880; 83935; 84295; 84300; 84484; 84520; 84550; 85025; 85610; 85730; 87086; 87186; 93005; 99252; 99285; J1756; J2405; J2470; J3475; J7030; J7050

== ENCOUNTER 2024-10-29 05:23 | Emergency (ER) | payer MEDICARE ==
[~2024-10-29] VITALS: Ht 188 cm; Wt 77.6 kg
[~2024-10-29 05:23] MED LIST changes: +ATORVASTATIN CA40 MG PO; +ELIQUIS5 MG PO; +FLOMAX0.4 MG PO; +LISINOPRIL2.5 MG PO; +TAMOXIFEN CITRA20 MG PO; +[UNRECOGNIZED DRUG - OTHER] PO
[2024-10-29] MEDS ORDERED: Morphine 4mg INJECTION 4 MG/ML INJ IV STA (05:28)
[2024-10-29 05:55] LABS: BASOPHILS % 0.3 % (0.0-1.0); EOSINOPHILS # (AUTO) 0.1 (0.0-0.4); EOSINOPHILS % 0.7 % (0.0-6.0); HEMATOCRIT 31.9 % (38.2-49.6); HEMOGLOBIN 10.3 g/dL (14.0-18.0); LYMPHOCYTES # (AUTO) 0.6 (1.0-3.2); LYMPHOCYTES % 6.5 % (18.0-39.1); MEAN CORPUSCULAR HEMOGLOBIN 26.6 pg (28-32); MEAN CORPUSCULAR HGB CONC 32.3 g/dL (31-35); MEAN CORPUSCULAR VOLUME 82.4 fL (81-99); MONOCYTES # (AUTO) 0.7 (0.2-0.8); MONOCYTES % 7.6 % (4.4-11.3); NEUTROPHILS % 83.9 % (38.7-80.0); PLATELET COUNT 282 x10e3/uL (140-360); RED BLOOD COUNT 3.87 x10e6/uL (4.3-5.7); WHITE BLOOD COUNT 9.53 x10e3/uL (4.8-10.8)
[2024-10-29 06:17] LABS: ALBUMIN 3.3 g/dL (3.5-5.0); ALBUMIN/GLOBULIN RATIO 1.2 (0.8-2.0); ANION GAP 13.7 mmol/L (8-16); BILIRUBIN,TOTAL 0.4 mg/dL (0.2-1.2); CREATININE, SERUM 0.89 mg/dL (0.72-1.25); POTASSIUM 3.7 mmol/L (3.5-5.1)
[2024-10-29 06:23] LABS: TROPONIN I 0.002 ng/mL (0-0.300)
[2024-10-29] MEDS: SODIUM CHLORIDE 0.9% 1000ML 1,000 ML IV STA (06:23)
[2024-10-29] MEDS: ONDANSETRON HCL INJ 2MG/ML 2ML 2 MG/ML VIAL IV STA (06:23)
[2024-10-29] MEDS: SODIUM CHLORIDE 0.9% 500ML 500 ML IV ONE (08:25)
[2024-10-29 08:30] VITALS: O2SAT 100
[2024-10-29] MEDS: LOPERAMIDE HCL 2 MG CAP PO ONE (08:42)
[2024-10-29 09:00] VITALS: PULSE 84; RESP 16; TEMP 98.3
== END 2024-10-29 09:09 | disposition home or self-care (01) ==
LOC: ER 05:28
DX: R19.7 Diarrhea, unspecified (principal); E86.0 Dehydration; R53.1 Weakness; I10 Essential (primary) hypertension; E11.65 Type 2 diabetes mellitus with hyperglycemia; I48.91 Unspecified atrial fibrillation; E78.5 Hyperlipidemia, unspecified; R94.31 Abnormal electrocardiogram [ECG] [EKG]; Z85.3 Personal history of malignant neoplasm of breast
CPT/HCPCS: 36415; 80053; 82550; 83690; 83735; 84484; 85025; 93005; 99284; J2405; J7030; J7040

== ENCOUNTER 2025-02-20 09:33 | Inpatient (IN) | payer MEDICARE ==
[~2025-02-20] VITALS: Ht 188 cm; Wt 77.6 kg
[2025-02-20 10:00] VITALS: TEMP 98.3
[2025-02-20] MEDS ORDERED: AMBIEN10 MG PO (11:13)
[2025-02-20 11:35] LABS: BASOPHILS % 0.3 % (0.0-1.0); EOSINOPHILS # (AUTO) 0.1 (0.0-0.4); HEMATOCRIT 30.8 % (38.2-49.6); HEMOGLOBIN 10.1 g/dL (14.0-18.0); LYMPHOCYTES # (AUTO) 0.6 (1.0-3.2); LYMPHOCYTES % 9.4 % (18.0-39.1); MEAN CORPUSCULAR HEMOGLOBIN 26.9 pg (28-32); MEAN CORPUSCULAR HGB CONC 32.8 g/dL (31-35); MEAN CORPUSCULAR VOLUME 81.9 fL (81-99); MONOCYTES # (AUTO) 0.6 (0.2-0.8); MONOCYTES % 8.3 % (4.4-11.3); NEUTROPHILS # (AUTO) 5.4 (2.1-6.9); NEUTROPHILS % 79.8 % (38.7-80.0); PLATELET COUNT 310 x10e3/uL (140-360); RED BLOOD COUNT 3.76 x10e6/uL (4.3-5.7); RED CELL DISTRIBUTION WIDTH 17.3 % (11.7-14.4); WHITE BLOOD COUNT 6.73 x10e3/uL (4.8-10.8)
[2025-02-20 11:48] LABS: INR 1.19; PARTIAL THROMBOPLASTIN TIME 29.7 seconds (23.8-35.5); PROTHROMBIN TIME 16.1 seconds (11.9-14.5)
[2025-02-20 11:56] LABS: ALBUMIN 3.7 g/dL (3.5-5.0); ALBUMIN/GLOBULIN RATIO 1.4 (0.8-2.0); ANION GAP 16.2 mmol/L (8-16); BILIRUBIN,TOTAL 0.7 mg/dL (0.2-1.2); CALCIUM 8.3 mg/dL (8.4-10.2); CREATININE, SERUM 0.9 mg/dL (0.72-1.25); MAGNESIUM 1.6 MG/DL (1.3-2.1); POTASSIUM 4.2 mmol/L (3.5-5.1); TOTAL PROTEIN 6.3 g/dL (6.5-8.1)
[2025-02-20 12:19] LABS: TROPONIN I 0.012 ng/mL (0-0.300)
[2025-02-20] MEDS: SODIUM CHLORIDE 0.9% 1000ML 1,000 ML IV STA (12:23)
[2025-02-20] MEDS: ONDANSETRON HCL INJ 2MG/ML 2ML 2 MG/ML VIAL IV STA (12:23)
[2025-02-20 12:42] LABS: BILIRUBIN,URINE NEGATIVE (NEGATIVE); CLARITY,URINE CLOUDY (CLEAR); COLOR,URINE YELLOW (YELLOW); GLUCOSE, URINE NEGATIVE (NEGATIVE); KETONES,URINE NEGATIVE (NEGATIVE); LEUKOCYTE ESTERASE ,URINE SMALL (NEGATIVE); NITRITE,URINE NEGATIVE (NEGATIVE); PH,URINE 8 (5 - 7); PROTEIN,URINE DIPSTICK TRACE (NEGATIVE); URINE UROBILINOGEN 0.2 mg/dL (0.2 - 1)
[2025-02-20 12:47] LABS: WBC,URINE (MAN) >50 /HPF (0-5)
[2025-02-20 12:48] LABS: BACTERIA,URINE FEW /HPF; EPITHELIAL CELLS,URINE FEW /LPF
[2025-02-20] MEDS: Vancomycin IV 1 GM in SODIUM CHLORIDE 0.9% 250ML 250 ML IV SCH (13:51)
[2025-02-20] MEDS: HYDRALAZINE HCL 20 MG/ML VIAL IV PRN (13:51)
[2025-02-20 14:00] VITALS: PULSE 54; RESP 20
[2025-02-20 16:01] VITALS: BP 171/73; TEMP 98.2; O2SAT 98
[2025-02-20 17:17] VITALS: BP 173/67; PULSE 62; RESP 19; TEMP 97.5; O2SAT 97
[2025-02-20] MEDS: FUROSEMIDE INJ 10 MG/ML 2 ML VIAL IV ONE (17:49)
[2025-02-20 20:00] VITALS: BP 173/61; PULSE 60; RESP 18; TEMP 98; O2SAT 93
[2025-02-20 20:05] VITALS: BP 173/67; PULSE 62; RESP 19; TEMP 97.5; O2SAT 97
[2025-02-20] MEDS: ACETAMINOPHEN 325 MG TAB PO PRN (23:05)
[2025-02-21] VITALS (8 sets, daily range): BP systolic 142–187; BP diastolic 55–79; PULSE 52–60; RESP 17–18; TEMP 97.4–98.6; O2SAT 9–97
[2025-02-21] MEDS: ZOLPIDEM TARTRATE 10 MG TAB PO PRN (00:13)
[2025-02-21 03:10] LABS: TROPONIN I 0.019 ng/mL (0-0.300)
[2025-02-21] MEDS ORDERED: ZOLPIDEM TARTRATE 10 MG TAB PO PRN (04:15)
[2025-02-21 05:55] LABS: BASOPHILS % 0.3 % (0.0-1.0); EOSINOPHILS # (AUTO) 0.1 (0.0-0.4); EOSINOPHILS % 0.6 % (0.0-6.0); HEMATOCRIT 32.8 % (38.2-49.6); HEMOGLOBIN 10.4 g/dL (14.0-18.0); LYMPHOCYTES # (AUTO) 0.9 (1.0-3.2); LYMPHOCYTES % 7.5 % (18.0-39.1); MEAN CORPUSCULAR HEMOGLOBIN 26.7 pg (28-32); MEAN CORPUSCULAR HGB CONC 31.7 g/dL (31-35); MEAN CORPUSCULAR VOLUME 84.1 fL (81-99); MONOCYTES # (AUTO) 1.1 (0.2-0.8); MONOCYTES % 9.4 % (4.4-11.3); NEUTROPHILS # (AUTO) 9.2 (2.1-6.9); NEUTROPHILS % 81.5 % (38.7-80.0); PLATELET COUNT 314 x10e3/uL (140-360); RED CELL DISTRIBUTION WIDTH 17.1 % (11.7-14.4); WHITE BLOOD COUNT 11.31 x10e3/uL (4.8-10.8)
[2025-02-21 06:15] LABS: ALBUMIN 3.4 g/dL (3.5-5.0); ALBUMIN/GLOBULIN RATIO 1.5 (0.8-2.0); ANION GAP 12.8 mmol/L (8-16); BILIRUBIN,TOTAL 0.7 mg/dL (0.2-1.2); CALCIUM 8.3 mg/dL (8.4-10.2); CREATININE, SERUM 0.81 mg/dL (0.72-1.25); POTASSIUM 3.8 mmol/L (3.5-5.1); TOTAL PROTEIN 5.6 g/dL (6.5-8.1)
[2025-02-21] MEDS: TAMOXIFEN CITRATE 10 MG TAB PO SCH (08:53)
[2025-02-21] MEDS: METOPROLOL TARTRATE 25 MG TAB PO SCH (08:53)
[2025-02-21] MEDS: LISINOPRIL 10 MG TAB PO SCH (08:54)
[2025-02-21] MEDS: AMIODARONE HCL 200 MG TAB PO SCH (08:54)
[2025-02-21] MEDS: APIXABAN 5 MG TABLET PO SCH (08:54)
[2025-02-21 09:04] LABS: TROPONIN I 0.023 ng/mL (0-0.300)
[2025-02-21] MEDS: ATORVASTATIN 10 MG TAB PO SCH (22:26)
[2025-02-21] MEDS: TRAMADOL HCL 50 MG TAB PO PRN (22:33)
[2025-02-22] VITALS (9 sets, daily range): BP systolic 132–199; BP diastolic 55–85; PULSE 52–64; RESP 17–20; TEMP 97.6–98.4; O2SAT 93–98
[2025-02-22] MEDS: MAGNESIUM SULFATE 2GM/50ML 50 ML IV ONE (06:26)
[2025-02-22 06:33] LABS: BASOPHILS % 0.2 % (0.0-1.0); EOSINOPHILS # (AUTO) 0.1 (0.0-0.4); EOSINOPHILS % 1.4 % (0.0-6.0); HEMATOCRIT 33.4 % (38.2-49.6); HEMOGLOBIN 10.8 g/dL (14.0-18.0); LYMPHOCYTES % 9.9 % (18.0-39.1); MEAN CORPUSCULAR HEMOGLOBIN 26.8 pg (28-32); MEAN CORPUSCULAR HGB CONC 32.3 g/dL (31-35); MEAN CORPUSCULAR VOLUME 82.9 fL (81-99); MONOCYTES # (AUTO) 1.1 (0.2-0.8); MONOCYTES % 11.3 % (4.4-11.3); NEUTROPHILS # (AUTO) 7.4 (2.1-6.9); NEUTROPHILS % 76.7 % (38.7-80.0); PLATELET COUNT 305 x10e3/uL (140-360); RED BLOOD COUNT 4.03 x10e6/uL (4.3-5.7); RED CELL DISTRIBUTION WIDTH 16.8 % (11.7-14.4)
[2025-02-22 07:30] LABS: ALBUMIN 3.3 g/dL (3.5-5.0); ALBUMIN/GLOBULIN RATIO 1.1 (0.8-2.0); ANION GAP 14.5 mmol/L (8-16); BILIRUBIN,TOTAL 1.1 mg/dL (0.2-1.2); CALCIUM 8.2 mg/dL (8.4-10.2); CREATININE, SERUM 0.83 mg/dL (0.72-1.25); POTASSIUM 3.5 mmol/L (3.5-5.1); TOTAL PROTEIN 6.2 g/dL (6.5-8.1)
[2025-02-22] MEDS: LISINOPRIL 20 MG TAB PO SCH (08:58)
[2025-02-22] MEDS: DOCUSATE SODIUM 100 MG CAP PO SCH (22:57)
[2025-02-23] VITALS (9 sets, daily range): BP systolic 118–185; BP diastolic 58–99; PULSE 46–97; RESP 17–20; TEMP 97.7–98.5; O2SAT 95–99
[2025-02-23 06:43] LABS: BASOPHILS % 0.2 % (0.0-1.0); EOSINOPHILS # (AUTO) 0.3 (0.0-0.4); EOSINOPHILS % 3.8 % (0.0-6.0); HEMATOCRIT 31.7 % (38.2-49.6); HEMOGLOBIN 10.5 g/dL (14.0-18.0); LYMPHOCYTES # (AUTO) 0.9 (1.0-3.2); LYMPHOCYTES % 10.3 % (18.0-39.1); MEAN CORPUSCULAR HEMOGLOBIN 26.9 pg (28-32); MEAN CORPUSCULAR HGB CONC 33.1 g/dL (31-35); MEAN CORPUSCULAR VOLUME 81.3 fL (81-99); MONOCYTES % 12.1 % (4.4-11.3); NEUTROPHILS # (AUTO) 6.1 (2.1-6.9); NEUTROPHILS % 72.9 % (38.7-80.0); PLATELET COUNT 279 x10e3/uL (140-360); RED CELL DISTRIBUTION WIDTH 17.1 % (11.7-14.4); WHITE BLOOD COUNT 8.35 x10e3/uL (4.8-10.8)
[2025-02-23 07:27] LABS: ALBUMIN 3.1 g/dL (3.5-5.0); ALBUMIN/GLOBULIN RATIO 1.1 (0.8-2.0); ANION GAP 14.8 mmol/L (8-16); BILIRUBIN,TOTAL 0.9 mg/dL (0.2-1.2); CALCIUM 7.8 mg/dL (8.4-10.2); CREATININE, SERUM 0.85 mg/dL (0.72-1.25); MAGNESIUM 1.9 MG/DL (1.3-2.1); POTASSIUM 3.8 mmol/L (3.5-5.1); TOTAL PROTEIN 5.8 g/dL (6.5-8.1)
[2025-02-23] MEDS: POLYETHYLENE GLYCOL 3350 17 GM PACK PO PRN (17:27)
[2025-02-24] VITALS (7 sets, daily range): BP systolic 144–170; BP diastolic 57–74; PULSE 55–77; RESP 18–20; TEMP 98–98.7; O2SAT 95–99
[2025-02-24 06:42] LABS: BASOPHILS % 0.4 % (0.0-1.0); EOSINOPHILS # (AUTO) 0.6 (0.0-0.4); EOSINOPHILS % 5.7 % (0.0-6.0); HEMATOCRIT 29.2 % (38.2-49.6); HEMOGLOBIN 9.7 g/dL (14.0-18.0); LYMPHOCYTES # (AUTO) 0.8 (1.0-3.2); LYMPHOCYTES % 8.1 % (18.0-39.1); MEAN CORPUSCULAR HEMOGLOBIN 26.6 pg (28-32); MEAN CORPUSCULAR HGB CONC 33.2 g/dL (31-35); MONOCYTES # (AUTO) 0.9 (0.2-0.8); MONOCYTES % 8.7 % (4.4-11.3); NEUTROPHILS # (AUTO) 7.6 (2.1-6.9); NEUTROPHILS % 76.7 % (38.7-80.0); PLATELET COUNT 306 x10e3/uL (140-360); RED BLOOD COUNT 3.65 x10e6/uL (4.3-5.7); RED CELL DISTRIBUTION WIDTH 17.2 % (11.7-14.4); WHITE BLOOD COUNT 9.87 x10e3/uL (4.8-10.8)
[2025-02-24 07:09] LABS: ALBUMIN/GLOBULIN RATIO 1.2 (0.8-2.0); BILIRUBIN,TOTAL 0.9 mg/dL (0.2-1.2); CALCIUM 7.7 mg/dL (8.4-10.2); CREATININE, SERUM 0.81 mg/dL (0.72-1.25); MAGNESIUM 1.7 MG/DL (1.3-2.1); TOTAL PROTEIN 5.6 g/dL (6.5-8.1)
[2025-02-25] VITALS (7 sets, daily range): BP systolic 152–181; BP diastolic 63–77; PULSE 54–69; RESP 18–20; TEMP 97.9–98.8; O2SAT 94–100
[2025-02-25 07:17] LABS: BASOPHILS % 0.5 % (0.0-1.0); EOSINOPHILS # (AUTO) 0.6 (0.0-0.4); EOSINOPHILS % 6.3 % (0.0-6.0); HEMATOCRIT 30.1 % (38.2-49.6); HEMOGLOBIN 9.9 g/dL (14.0-18.0); LYMPHOCYTES # (AUTO) 0.8 (1.0-3.2); LYMPHOCYTES % 9.3 % (18.0-39.1); MEAN CORPUSCULAR HGB CONC 32.9 g/dL (31-35); MONOCYTES # (AUTO) 0.9 (0.2-0.8); NEUTROPHILS # (AUTO) 6.4 (2.1-6.9); NEUTROPHILS % 73.2 % (38.7-80.0); PLATELET COUNT 318 x10e3/uL (140-360); RED BLOOD COUNT 3.67 x10e6/uL (4.3-5.7); RED CELL DISTRIBUTION WIDTH 17.2 % (11.7-14.4); WHITE BLOOD COUNT 8.71 x10e3/uL (4.8-10.8)
[2025-02-25 07:59] LABS: BILIRUBIN,TOTAL 0.9 mg/dL (0.2-1.2); CALCIUM 8.1 mg/dL (8.4-10.2); CREATININE, SERUM 0.81 mg/dL (0.72-1.25); TOTAL PROTEIN 5.9 g/dL (6.5-8.1)
[2025-02-26] VITALS: BP 168/63; PULSE 65; RESP 18; TEMP 98.3; O2SAT 97
[2025-02-26 04:00] VITALS: BP 161/92; PULSE 66; RESP 20; TEMP 98.4; O2SAT 95
[2025-02-26 08:00] VITALS: BP 170/68; PULSE 65; RESP 17; RESP 18; TEMP 98.1; O2SAT 100
[2025-02-26] MEDS: LISINOPRIL 20 MG TAB PO SCH (08:39)
[2025-02-26 12:00] VITALS: BP_SYST 128; BP_SYST 170; BP_DIAS 61; BP_DIAS 68; PULSE 51; PULSE 65; RESP 17; TEMP 98.1; TEMP 98.3; O2SAT 100; O2SAT 97
[2025-02-26 16:00] VITALS: BP 145/59; PULSE 52; RESP 17; TEMP 98.1; O2SAT 98
[2025-02-26 20:00] VITALS: BP 182/59; PULSE 53; RESP 17; TEMP 98.2; O2SAT 100
[2025-02-27] VITALS (7 sets, daily range): BP systolic 117–195; BP diastolic 55–74; PULSE 55–75; RESP 18–20; TEMP 97.7–98.3; O2SAT 95–100
[2025-02-27] MEDS: BISACODYL 5 MG TAB EC PO SCH (02:10)
[2025-02-27] MEDS: LACTULOSE SYRUP 20 GM/30 ML UDC PO ONE (06:43)
[2025-02-27 06:56] LABS: BASOPHILS % 0.5 % (0.0-1.0); EOSINOPHILS # (AUTO) 0.3 (0.0-0.4); EOSINOPHILS % 3.4 % (0.0-6.0); HEMATOCRIT 30.1 % (38.2-49.6); LYMPHOCYTES # (AUTO) 0.8 (1.0-3.2); LYMPHOCYTES % 9.6 % (18.0-39.1); MEAN CORPUSCULAR HEMOGLOBIN 26.7 pg (28-32); MEAN CORPUSCULAR HGB CONC 33.2 g/dL (31-35); MEAN CORPUSCULAR VOLUME 80.3 fL (81-99); MONOCYTES # (AUTO) 0.8 (0.2-0.8); MONOCYTES % 9.8 % (4.4-11.3); NEUTROPHILS # (AUTO) 6.3 (2.1-6.9); NEUTROPHILS % 76.1 % (38.7-80.0); PLATELET COUNT 336 x10e3/uL (140-360); RED BLOOD COUNT 3.75 x10e6/uL (4.3-5.7); RED CELL DISTRIBUTION WIDTH 17.1 % (11.7-14.4); WHITE BLOOD COUNT 8.24 x10e3/uL (4.8-10.8)
[2025-02-27 07:15] LABS: ALBUMIN 3.4 g/dL (3.5-5.0); ALBUMIN/GLOBULIN RATIO 1.3 (0.8-2.0); ANION GAP 13.1 mmol/L (8-16); BILIRUBIN,TOTAL 0.7 mg/dL (0.2-1.2); CALCIUM 8.4 mg/dL (8.4-10.2); CREATININE, SERUM 0.81 mg/dL (0.72-1.25); MAGNESIUM 1.8 MG/DL (1.3-2.1); POTASSIUM 4.1 mmol/L (3.5-5.1); TOTAL PROTEIN 6.1 g/dL (6.5-8.1)
[2025-02-27] MEDS: AMLODIPINE BESYLATE 5 MG TAB PO SCH (08:51)
[2025-02-27] MEDS: MINERAL OIL 132 ML BTL PR ONE (10:57)
[2025-02-28] VITALS (7 sets, daily range): BP systolic 136–175; BP diastolic 50–68; PULSE 53–63; RESP 18–19; TEMP 97.9–98.7; O2SAT 98–100
[2025-02-28] MEDS: ZOLPIDEM TARTRATE 10 MG TAB PO PRN (23:15)
[2025-03-01] VITALS (8 sets, daily range): BP systolic 128–186; BP diastolic 50–75; PULSE 52–66; RESP 18–20; TEMP 97.7–98.2; O2SAT 95–100
[2025-03-01 06:13] LABS: BASOPHILS % 0.3 % (0.0-1.0); EOSINOPHILS # (AUTO) 0.3 (0.0-0.4); EOSINOPHILS % 3.9 % (0.0-6.0); HEMATOCRIT 28.8 % (38.2-49.6); HEMOGLOBIN 9.7 g/dL (14.0-18.0); LYMPHOCYTES # (AUTO) 0.9 (1.0-3.2); LYMPHOCYTES % 13.5 % (18.0-39.1); MEAN CORPUSCULAR HGB CONC 33.7 g/dL (31-35); MEAN CORPUSCULAR VOLUME 80.2 fL (81-99); MONOCYTES # (AUTO) 0.8 (0.2-0.8); MONOCYTES % 11.1 % (4.4-11.3); NEUTROPHILS # (AUTO) 4.8 (2.1-6.9); NEUTROPHILS % 70.5 % (38.7-80.0); PLATELET COUNT 317 x10e3/uL (140-360); RED BLOOD COUNT 3.59 x10e6/uL (4.3-5.7); RED CELL DISTRIBUTION WIDTH 16.9 % (11.7-14.4); WHITE BLOOD COUNT 6.75 x10e3/uL (4.8-10.8)
[2025-03-01 06:29] LABS: ALBUMIN 3.3 g/dL (3.5-5.0); ALBUMIN/GLOBULIN RATIO 1.2 (0.8-2.0); ANION GAP 12.8 mmol/L (8-16); BILIRUBIN,TOTAL 0.5 mg/dL (0.2-1.2); CALCIUM 8.3 mg/dL (8.4-10.2); CREATININE, SERUM 0.83 mg/dL (0.72-1.25); MAGNESIUM 1.9 MG/DL (1.3-2.1); POTASSIUM 3.8 mmol/L (3.5-5.1)
[2025-03-01] MEDS: AMLODIPINE BESYLATE 5 MG TAB PO SCH (09:04)
[2025-03-02] VITALS (8 sets, daily range): BP systolic 130–169; BP diastolic 54–64; PULSE 54–65; RESP 17–20; TEMP 97.9–98.6; O2SAT 95–100
[2025-03-03] VITALS (7 sets, daily range): BP systolic 114–184; BP diastolic 51–80; PULSE 51–62; RESP 16–18; TEMP 98–98.7; O2SAT 93–98
[2025-03-03 06:47] LABS: BASOPHILS # (AUTO) 0.1 (0.0-0.1); BASOPHILS % 0.8 % (0.0-1.0); EOSINOPHILS # (AUTO) 0.3 (0.0-0.4); EOSINOPHILS % 3.8 % (0.0-6.0); HEMATOCRIT 30.6 % (38.2-49.6); HEMOGLOBIN 9.8 g/dL (14.0-18.0); LYMPHOCYTES # (AUTO) 0.9 (1.0-3.2); LYMPHOCYTES % 13.1 % (18.0-39.1); MEAN CORPUSCULAR HEMOGLOBIN 26.4 pg (28-32); MEAN CORPUSCULAR VOLUME 82.5 fL (81-99); MONOCYTES # (AUTO) 0.7 (0.2-0.8); MONOCYTES % 10.5 % (4.4-11.3); NEUTROPHILS # (AUTO) 4.7 (2.1-6.9); PLATELET COUNT 339 x10e3/uL (140-360); RED BLOOD COUNT 3.71 x10e6/uL (4.3-5.7); RED CELL DISTRIBUTION WIDTH 16.8 % (11.7-14.4); WHITE BLOOD COUNT 6.65 x10e3/uL (4.8-10.8)
[2025-03-03 07:32] LABS: ALBUMIN 3.4 g/dL (3.5-5.0); ALBUMIN/GLOBULIN RATIO 1.3 (0.8-2.0); ANION GAP 11.1 mmol/L (8-16); BILIRUBIN,TOTAL 0.5 mg/dL (0.2-1.2); CALCIUM 8.5 mg/dL (8.4-10.2); POTASSIUM 4.1 mmol/L (3.5-5.1); TOTAL PROTEIN 6.1 g/dL (6.5-8.1)
[2025-03-03 07:49] LABS: CREATININE, SERUM 0.89 mg/dL (0.72-1.25)
== END 2025-03-03 18:20 | DRG 689 ==
LOC: ER 10:48 → ERHOLD 14:06 → MED/SURG3 14:45
PROVIDERS: ADMIT Internal Medicine; ATTEND Internal Medicine
DX: N39.0 Urinary tract infection, site not specified (principal); J18.9 Pneumonia, unspecified organism; Z16.30 Resistance to unspecified antimicrobial drugs; E44.0 Moderate protein-calorie malnutrition; E87.1 Hypo-osmolality and hyponatremia; R00.1 Bradycardia, unspecified; I10 Essential (primary) hypertension; E11.9 Type 2 diabetes mellitus without complications; Z79.01 Long term (current) use of anticoagulants; I25.10 Atherosclerotic heart disease of native coronary artery without angina pectoris; E78.5 Hyperlipidemia, unspecified; R62.7 Adult failure to thrive; D64.9 Anemia, unspecified; R53.81 Other malaise; B96.5 Pseudomonas (aeruginosa) (mallei) (pseudomallei) as the cause of diseases classified elsewhere; F44.89 Other dissociative and conversion disorders; K59.00 Constipation, unspecified; G47.00 Insomnia, unspecified; R13.10 Dysphagia, unspecified; N40.1 Benign prostatic hyperplasia with lower urinary tract symptoms; R35.0 Frequency of micturition; I48.0 Paroxysmal atrial fibrillation; L89.152 Pressure ulcer of sacral region, stage 2; Z85.3 Personal history of malignant neoplasm of breast; Z79.60 Long term (current) use of unspecified immunomodulators and immunosuppressants; Z82.49 Family history of ischemic heart disease and other diseases of the circulatory system; Z87.440 Personal history of urinary (tract) infections; Z86.718 Personal history of other venous thrombosis and embolism; Z68.22 Body mass index [BMI] 22.0-22.9, adult
CPT/HCPCS: 36415; 70450; 71045; 80053; 80061; 80202; 81001; 82550; 82948; 83735; 83880; 84484; 85025; 85610; 85730; 87040; 87086; 87186; 93005; 93306; 99252; 99284; J0360; J0692; J2405; J3475; J7030; J7050

== ENCOUNTER 2025-06-08 07:38 | Inpatient (IN) | payer MEDICARE ==
[2025-06-02 14:29] LABS: BASOPHILS % 0.4 % (0.0-1.0); EOSINOPHILS % 1.7 % (0.0-6.0); LYMPHOCYTES % 14.6 % (18.0-39.1); MONOCYTES % 10.4 % (4.4-11.3); NEUTROPHILS % 72.2 % (38.7-80.0); RED CELL DISTRIBUTION WIDTH 15.8 % (11.7-14.4)
[2025-06-02 15:06] LABS: EST GLOMERULAR FILTRATION RATE 88.0 ML/MIN (>=60)
[2025-06-08] VITALS (8 sets, daily range): BP systolic 104–154; BP diastolic 52–98; PULSE 43–89; RESP 18–20; TEMP 94.5–97.5; O2SAT 92–100
[~2025-06-08 07:38] MED LIST changes: +AMBIEN10 MG PO; +FINASTERIDE5 MG PO; +RAPAFLO8 MG PO
[2025-06-08] MEDS ORDERED: Sodium Chloride 0.9% 50ML Bag ONE (08:32)
[2025-06-08] MEDS ORDERED: FENTANYL CITRATE/PF 100MCG/2 ML INJ ONE (10:00)
[2025-06-08] MEDS ORDERED: PROPOFOL IV EMULSION 10 MG/ML 20 ML VIAL ONE ×2 (10:00→10:55)
[2025-06-08] MEDS ORDERED: LIDOCAINE HCL 2% LOCAL INJ 5 ML SDV VIAL INJ ONE (10:01)
[2025-06-08] MEDS ORDERED: GLYCOPYRROLATE INJ 0.2 MG/ML VIAL ONE (10:29)
[2025-06-08] MEDS ORDERED: ONDANSETRON HCL INJ 2MG/ML 2ML 2 MG/ML VIAL ONE (10:48)
[2025-06-08] MEDS ORDERED: ACETAMINOPHEN 1000 MG/100 ML IV PRN (12:30)
[2025-06-08] MEDS ORDERED: DIPHENHYDRAMINE HCL 25 MG CAP PO PRN (12:30)
[2025-06-08 12:32] LABS: BASOPHILS % 0.5 % (0.0-1.0); EOSINOPHILS % 1.8 % (0.0-6.0); LYMPHOCYTES % 13.7 % (18.0-39.1); MONOCYTES % 10.1 % (4.4-11.3); NEUTROPHILS % 72.8 % (38.7-80.0); RED CELL DISTRIBUTION WIDTH 15.9 % (11.7-14.4)
[2025-06-08 12:55] LABS: EST GLOMERULAR FILTRATION RATE 89.0 ML/MIN (>=60)
[2025-06-08] MEDS: SODIUM CHLORIDE 0.9% 1000ML 1,000 ML ONE (14:36)
[2025-06-08] MEDS: SODIUM CHLORIDE 0.9% 1000ML 1,000 ML IV SCH (14:37)
[2025-06-08] MEDS: PHENAZOPYRIDINE HCL 100 MG TAB PO PRN (16:05)
[2025-06-08] MEDS: SENNA-S TABLET PO SCH (16:05)
[2025-06-08] MEDS: ACETAMINOPHEN/CODEINE 300MG - 30MG TAB PO PRN (16:06)
[2025-06-08] MEDS: ONDANSETRON HCL INJ 2MG/ML 2ML 2 MG/ML VIAL IV PRN (17:24)
[2025-06-08] MEDS: ZOLPIDEM TARTRATE 10 MG TAB PO PRN (23:29)
[2025-06-09] VITALS (12 sets, daily range): BP systolic 113–162; BP diastolic 49–69; PULSE 59–73; RESP 16–19; TEMP 97.6–98.7; O2SAT 95–100
[2025-06-09] MEDS: MAGNESIUM SULFATE 2GM/50ML 50 ML IV ONE (04:31)
[2025-06-09 05:56] LABS: BASOPHILS % 0.2 % (0.0-1.0); EOSINOPHILS % 0.0 % (0.0-6.0); LYMPHOCYTES % 7.4 % (18.0-39.1); MONOCYTES % 7.6 % (4.4-11.3); NEUTROPHILS % 83.8 % (38.7-80.0); RED CELL DISTRIBUTION WIDTH 15.9 % (11.7-14.4)
[2025-06-09 07:20] LABS: EST GLOMERULAR FILTRATION RATE 67.0 ML/MIN (>=60)
[2025-06-09] MEDS: AMIODARONE HCL 200 MG TAB PO SCH (09:45)
[2025-06-09] MEDS: FINASTERIDE 5 MG TAB PO SCH (09:45)
[2025-06-09] MEDS: SODIUM CHLORIDE 0.9% 250ML 250 ML IV ONE (13:08)
[2025-06-09] MEDS: ATORVASTATIN 40 MG TAB PO SCH (20:35)
[2025-06-10] VITALS (10 sets, daily range): BP systolic 156–184; BP diastolic 52–71; PULSE 58–102; RESP 16–18; TEMP 97.8–98.1; O2SAT 94–98
[2025-06-10 06:54] LABS: BASOPHILS % 0.3 % (0.0-1.0); EOSINOPHILS % 2.1 % (0.0-6.0); LYMPHOCYTES % 13.6 % (18.0-39.1); MONOCYTES % 11.1 % (4.4-11.3); NEUTROPHILS % 71.6 % (38.7-80.0); RED CELL DISTRIBUTION WIDTH 15.9 % (11.7-14.4)
[2025-06-10 07:48] LABS: EST GLOMERULAR FILTRATION RATE 67.0 ML/MIN (>=60)
[2025-06-10] MEDS: SODIUM CHLORIDE 0.9% 250ML 250 ML IV ONE (08:12)
[2025-06-10] MEDS: SODIUM CHLORIDE 0.9% 250ML 250 ML ONE (16:06)
[2025-06-11] VITALS (9 sets, daily range): BP systolic 108–192; BP diastolic 60–86; PULSE 53–75; RESP 16–20; TEMP 97.5–98.5; O2SAT 96–100
[2025-06-11 06:38] LABS: BASOPHILS % 0.3 % (0.0-1.0); EOSINOPHILS % 4.0 % (0.0-6.0); LYMPHOCYTES % 11.4 % (18.0-39.1); MONOCYTES % 11.2 % (4.4-11.3); NEUTROPHILS % 72.5 % (38.7-80.0); RED CELL DISTRIBUTION WIDTH 15.4 % (11.7-14.4)
[2025-06-11 06:50] LABS: EST GLOMERULAR FILTRATION RATE 89.0 ML/MIN (>=60)
[2025-06-11] MEDS: HYDRALAZINE HCL 20 MG/ML VIAL IV PRN (14:26)
[2025-06-12 03:25] VITALS: BP 156/66; PULSE 67; RESP 18; TEMP 98.1; O2SAT 99
[2025-06-12 07:43] LABS: BASOPHILS % 0.1 % (0.0-1.0); EOSINOPHILS % 0.6 % (0.0-6.0); LYMPHOCYTES % 7.8 % (18.0-39.1); MONOCYTES % 6.8 % (4.4-11.3); NEUTROPHILS % 84.2 % (38.7-80.0); RED CELL DISTRIBUTION WIDTH 15.7 % (11.7-14.4)
[2025-06-12 08:12] LABS: EST GLOMERULAR FILTRATION RATE 90.0 ML/MIN (>=60)
[2025-06-12 11:38] VITALS: PULSE 53; RESP 18; O2SAT 97
[2025-06-12 18:54] VITALS: PULSE 68; RESP 18; O2SAT 98
[2025-06-12 18:57] VITALS: BP 180/59; PULSE 52; RESP 18; TEMP 98; O2SAT 96
[2025-06-12 19:00] VITALS: BP 177/68; PULSE 60; RESP 18; TEMP 98; O2SAT 98
[2025-06-12 20:00] VITALS: BP 192/78; PULSE 62; RESP 16; TEMP 98.8; O2SAT 99
[2025-06-13] VITALS (7 sets, daily range): BP systolic 151–184; BP diastolic 56–72; PULSE 62–74; RESP 19–20; TEMP 97.5–98.6; O2SAT 96–100
[2025-06-13 06:36] LABS: BASOPHILS % 0.3 % (0.0-1.0); EOSINOPHILS % 1.9 % (0.0-6.0); LYMPHOCYTES % 11.0 % (18.0-39.1); MONOCYTES % 10.2 % (4.4-11.3); NEUTROPHILS % 76.0 % (38.7-80.0); RED CELL DISTRIBUTION WIDTH 15.9 % (11.7-14.4)
[2025-06-13 07:12] LABS: EST GLOMERULAR FILTRATION RATE 86.0 ML/MIN (>=60)
[2025-06-13] MEDS: LACTULOSE SYRUP 20 GM/30 ML UDC PO SCH (09:32)
[2025-06-13] MEDS: LISINOPRIL 10 MG TAB PO SCH (14:41)
[2025-06-14] VITALS (11 sets, daily range): BP systolic 146–186; BP diastolic 57–89; PULSE 60–74; RESP 17–20; TEMP 98–98.8; O2SAT 96–100
[2025-06-15] VITALS (10 sets, daily range): BP systolic 100–193; BP diastolic 53–92; PULSE 58–81; RESP 16–18; TEMP 97.7–98.6; O2SAT 94–100
[2025-06-16] VITALS (9 sets, daily range): BP systolic 155–190; BP diastolic 57–81; PULSE 57–76; RESP 8–20; TEMP 97.8–98.2; O2SAT 93–100
[2025-06-16] MEDS: ACETAMINOPHEN/CODEINE 300MG - 30MG TAB PO PRN (11:52)
[2025-06-16] MEDS: ZOLPIDEM TARTRATE 5 MG TAB PO PRN (22:28)
[2025-06-17] VITALS (9 sets, daily range): BP systolic 134–179; BP diastolic 63–91; PULSE 70–81; RESP 16–18; TEMP 98–98.9; O2SAT 90–98
== END 2025-06-17 17:00 | disposition home or self-care (01) | DRG 713 ==
LOC: OR 07:38 → PACU V 12:19 → MED/SURG3 13:05
PROVIDERS: ADMIT Internal Medicine; ATTEND Internal Medicine
PROC: 0T788ZZ Dilation of Bilateral Ureters, Via Natural or Artificial Opening Endoscopic (ICD-10-PCS; 2025-06-08)
PROC: BT141ZZ Fluoroscopy of Kidneys, Ureters and Bladder using Low Osmolar Contrast (ICD-10-PCS; 2025-06-08)
PROC: 0VT08ZZ Resection of Prostate, Via Natural or Artificial Opening Endoscopic (ICD-10-PCS; principal; 2025-06-08 10:16)
PROC: 30233N1 Transfusion of Nonautologous Red Blood Cells into Peripheral Vein, Percutaneous Approach (ICD-10-PCS; 2025-06-09)
DX: N40.1 Benign prostatic hyperplasia with lower urinary tract symptoms (principal); D62 Acute posthemorrhagic anemia; N13.8 Other obstructive and reflux uropathy; N39.0 Urinary tract infection, site not specified; R31.29 Other microscopic hematuria; I10 Essential (primary) hypertension; N32.3 Diverticulum of bladder; N35.919 Unspecified urethral stricture, male, unspecified site; N32.89 Other specified disorders of bladder; D72.829 Elevated white blood cell count, unspecified; I48.91 Unspecified atrial fibrillation; E78.5 Hyperlipidemia, unspecified; E11.9 Type 2 diabetes mellitus without complications; R53.81 Other malaise; R53.1 Weakness; Z79.01 Long term (current) use of anticoagulants; Z87.440 Personal history of urinary (tract) infections; Z85.3 Personal history of malignant neoplasm of breast
CPT/HCPCS: 36415; 36569; 71045; 71046; 74176; 74420; 80048; 80053; 82948; 83735; 85025; 86850; 86900; 86920; 87086; 87186; 88305; 93005; 94799; C1758; J0360; J0713; J2003; J2405; J2543; J3475; J7030; J7050; P9016

== ENCOUNTER 2025-06-21 17:57 | Emergency (ER) | payer MEDICARE ==
[~2025-06-21] VITALS: Ht 188 cm; Wt 77.1 kg
[2025-06-21 18:05] VITALS: PULSE 67; RESP 18; TEMP 98.7
[2025-06-21 18:43] LABS: BASOPHILS % 0.3 % (0.0-1.0); EOSINOPHILS % 3.2 % (0.0-6.0); LYMPHOCYTES % 12.3 % (18.0-39.1); MONOCYTES % 9.0 % (4.4-11.3); NEUTROPHILS % 74.4 % (38.7-80.0); RED CELL DISTRIBUTION WIDTH 15.8 % (11.7-14.4)
[2025-06-21 18:59] LABS: EST GLOMERULAR FILTRATION RATE 75.0 ML/MIN (>=60)
[2025-06-21] MEDS: HYDRALAZINE HCL 20 MG/ML VIAL IV STA (19:02)
[2025-06-21] MEDS ORDERED: HYDRALAZINE HCL25 MG PO (19:29)
[2025-06-21 19:57] VITALS: BP 169/61; O2SAT 96
== END 2025-06-21 19:45 | disposition home or self-care (01) ==
LOC: ER 18:20
DX: I10 Essential (primary) hypertension (principal); D64.9 Anemia, unspecified; E11.9 Type 2 diabetes mellitus without complications; I50.9 Heart failure, unspecified; K21.9 Gastro-esophageal reflux disease without esophagitis; R13.10 Dysphagia, unspecified; G47.00 Insomnia, unspecified; F41.9 Anxiety disorder, unspecified; R94.31 Abnormal electrocardiogram [ECG] [EKG]; Z85.3 Personal history of malignant neoplasm of breast
CPT/HCPCS: 36415; 80053; 84484; 85025; 99284; J0360; 93005